=== PATIENT | male | born 1985 ===

== ENCOUNTER 2016-12-29 12:26 | Emergency (ER) | payer SELFPAY ==
[2016-12-29 12:33] VITALS: BP 137/79; PULSE 77; RESP 16; TEMP 97.7; O2SAT 98
[2016-12-29] MEDS ORDERED: Amoxicillin-Clav 875-125 mg Tab PO STA (13:01)
[2016-12-29] MEDS ORDERED: Amoxicillin-Clav 875-125 mg Tab PO ONE (13:05)
--- NOTE | 2016-12-29 13:11 | C.PDOC ---
History Of Present Illness 31 year old male presents to ED with complaints of left forearm pain and redness. Patient states he had a tattoo done 2 days ago. Today he noticed slight more redness than yesterday and dull pain. He denies any fever, severe swelling, numbness, tingling or bleeding. Time Seen by Provider: 12/29/16 12:48 Chief Complaint (Nursing): Upper Extremity Problem/Injury History Per: Patient History/Exam Limitations: no limitations Onset/Duration Of Symptoms: Hrs Current Symptoms Are (Timing): Still Present Quality: "Pain" (dull pain ) Past Medical History Reviewed: Historical Data, Nursing Documentation, Vital Signs Vital Signs: Last Vital Signs Temp 97.7 F 12/29/16 12:31 Pulse 77 12/29/16 12:31 Resp 16 12/29/16 12:31 BP 137/79 12/29/16 12:31 Pulse Ox 98 12/29/16 15:03 Family History: States: Unknown Family Hx - Social History Hx Alcohol Use: No Hx Substance Use: No - Immunization History Hx Tetanus Toxoid Vaccination: No Hx Influenza Vaccination: No Hx Pneumococcal Vaccination: No Review Of Systems Constitutional: Negative for: Fever, Chills, Sweats Cardiovascular: Negative for: Chest Pain, Palpitations Respiratory: Negative for: Cough, Shortness of Breath Gastrointestinal: Negative for: Nausea, Vomiting, Abdominal Pain, Diarrhea Musculoskeletal: Positive for: Arm Pain Skin: Positive for: Other (redness around tattoo site) Physical Exam - Physical Exam Appears: Non-toxic, No Acute Distress Skin: Warm, Dry Head: Atraumatic, Normacephalic Eye(s): bilateral: Normal Inspection Neck: Supple Chest: Symmetrical, No Deformity Extremity: Normal ROM, Other (Left forearm with fresh tattoo minimal surrounding erythema and swelling, and noticeable small papules in the area of red dye. localized tenderness to left distal forearm. No blisters, bullae, streaking, bleeding, discharge, foul odor or tactile warmth.) Neurological/Psych: Oriented x3, Normal Speech Gait: Steady ED Course And Treatment O2 Sat by Pulse Oximetry: 98 (room air ) Pulse Ox Interpretation: Normal Medical Decision Making Medical Decision Makin31 year old with pain to site of new tattoo on left forearm. Area appears minimally erythematous and trace swelling, no tactile warmth, bleeding or blisters. Will treat patient with Augmentin and instruct on proper care of tattoo. recommend follow up in 2 days for wound check. Disposition Counseled Patient/Family Regarding: Diagnosis, Need For Followup, Rx Given - Disposition Disposition: HOME/ ROUTINE Disposition Time: 13:12 Condition: GOOD Additional Instructions: Keep area clean and dry, wash 1-2 times daily with antibacterial liquid soap, and pat dry. Do not scratch or pick at area. Take antibiotic as prescribed Have your tattoo wound checked in 1-2 days. Return to ER if fever occurs, significant redness or swelling around wound, pus in the wound, red streaking. Prescriptions: Amoxicillin/Clavulanate [Augmentin 875 MG-125 MG] 1 tab PO BID #14 tab Instructions: Cellulitis (DC) - POA Present On Arrival: None - Clinical Impression Clinical Impression: Tattoo reaction - Scribe Statement The provider has reviewed the documentation as recorded by the Scribish Cole All medical record entries made by the Lizzetteibish were at my direction and personally dictated by me. I have reviewed the chart and agree that the record accurately reflects my personal performance of the history, physical exam, medical decision making, and the department course for this patient. I have also personally directed, reviewed, and agree with the discharge instructions and disposition.
== END 2016-12-29 13:24 | disposition home or self-care (01) ==
LOC: C.ER 12:26
DX: L81.8 Other specified disorders of pigmentation (principal)